=== PATIENT | female | born 1940 | race Caucasian/White ===

== ENCOUNTER 2016-07-17 11:44 | Emergency (ER) | payer MEDICARE ==
[~2016-07-17 11:44] MED LIST: Sodium Chloride 0.9% 1,000 ML BAG ONE
[2016-07-17] MEDS ORDERED: Ondansetron HCl/PF 4 MG/2 ML Vial ONE (12:00)
[2016-07-17] MEDS ORDERED: Metoclopramide HCl 10 MG/2 ML VIAL ONE (12:25)
[2016-07-17] MEDS ORDERED: Ketorolac Tromethamine 30 MG/ML VIAL ONE (12:25)
[2016-07-17 12:40] LABS: Hemoglobin 14.3 g/dL (12.0-16.0); Mean Corpuscular HGB CONC 35.2 g/dL (32.0-36.0); Mean Corpuscular Hemoglobin 32.5 pg (27.0-31.0); Mean Corpuscular Volume 92.4 fl (81.0-99.0); Mean Platelet Volume 6.6 fL (7.4-10.4); Platelet Count 190 thou/uL (130-400); RBC Distribution Width 10.8 % (11.5-14.5); Red Blood Cell (RBC) Count 4.41 mill/uL (4.20-5.40); White Blood Cell (WBC) Count 11.1 thou/uL (4.8-10.8)
[2016-07-17 12:41] LABS: MDiff Complete? YES
[2016-07-17 12:44] LABS: Lymphocytes 47 % (21-51); Neutrophil 46 % (42-75)
[2016-07-17 12:45] LABS: Eosinophils 2 % (0-10); Monocytes 5 % (0-10)
[2016-07-17 12:46] LABS: PLT Morphology Comment Appears Adequate
[2016-07-17 12:50] LABS: ALT (SGPT) 21 U/L (8-55); AST (SGOT) 16 U/L (5-34); Albumin 4.2 g/dL (3.4-4.8); Alkaline Phosphatase 60 U/L (40-150); Anion Gap 18 mmol/L (10-20); BUN (Urea Nitrogen) 15 mg/dL (9.8-20.1); Bilirubin, Total 0.7 mg/dL (0.2-1.2); Calc. Creatinine Clearance 0 mL/min (70-130); Calcium 9.6 mg/dL (7.8-10.44); Carbon Dioxide 20 mmol/L (23-31); Chloride 102 mmol/L (98-107); Estimated GFR-MDRD 72; Globulin 2.9 g/dL (2.4-3.5); Glucose 191 mg/dL (83-110); Lipase 21 U/L (8-78); Potassium 3.8 mmol/L (3.5-5.1); Protein, Total 7.1 g/dL (6.0-8.3); Sodium 136 mmol/L (136-145)
[2016-07-17] MEDS ORDERED: Meclizine HCl 25 MG TAB ONE (13:05)
[2016-07-17 13:10] LABS: Clarity Slightly Cloudy (Clear); Glucose, Urine (Dipstick) 500 mg/dL (Negative); Leukocyte Negative (Negative); Nitrite Negative (Negative); Protein, Urine (Dipstick) 30 mg/dL (Neg-Trace)
[2016-07-17 13:11] LABS: Bacteria/HPF Rare-Few HPF (None Seen); Bilirubin Negative (Negative); Blood, Urine Trace (Negative); RBC/HPF 0-3 HPF (0-3); Squamous Epithelial 0-3 HPF (0-3); Urobilinogen 0.2 mg/dL (0.2-1.0); WBC/HPF 0-3 HPF (0-3)
--- NOTE | 2016-07-17 13:30 | RAD ---
PORTABLE CHEST HISTORY: Vomiting. FINDINGS: The lungs appear clear of infiltrate. Heart size is mildly prominent. Vascular markings are within normal range. IMPRESSION: No evidence of acute process. POS: [id number]
== END 2016-07-17 13:45 | disposition home or self-care (01) ==
LOC: MADERS 11:44
DX: R11.2 Nausea with vomiting, unspecified (principal); R42 Dizziness and giddiness; G62.9 Polyneuropathy, unspecified; E11.9 Type 2 diabetes mellitus without complications; I10 Essential (primary) hypertension; Z79.84 Long term (current) use of oral hypoglycemic drugs; Z79.82 Long term (current) use of aspirin; Z79.899 Other long term (current) drug therapy
CPT/HCPCS: 71010; 80053; 81001; 82150; 83690; 85025; 87086; 96361; 96374; 96375; J1885; J2405; J2765; J7050

== ENCOUNTER 2022-08-07 13:07 | Emergency (ER) | payer MEDICARE | END 2022-08-07 13:25 | disposition home or self-care (01) | LOC: MADERS 13:07 | DX: K04.7 Periapical abscess without sinus (principal); E11.9 Type 2 diabetes mellitus without complications; I10 Essential (primary) hypertension; Z79.84 Long term (current) use of oral hypoglycemic drugs; Z79.899 Other long term (current) drug therapy; Z79.82 Long term (current) use of aspirin | CPT/HCPCS: 99282 ==

== ENCOUNTER 2022-10-04 07:29 | Outpatient (CLI) | payer MEDICARE | END 2022-10-04 07:30 | disposition home or self-care (01) | LOC: MADULT 07:29 | PROVIDERS: ATTEND Internal Medicine | DX: R59.0 Localized enlarged lymph nodes (principal) | CPT/HCPCS: 76999 ==

== ENCOUNTER 2022-10-23 10:02 | Emergency (ER) | payer MEDICARE | END 2022-10-23 11:00 | disposition home or self-care (01) | LOC: MADERS 10:02 | DX: M25.532 Pain in left wrist (principal); E11.9 Type 2 diabetes mellitus without complications; I10 Essential (primary) hypertension; Z79.84 Long term (current) use of oral hypoglycemic drugs; Z79.899 Other long term (current) drug therapy | CPT/HCPCS: 99283 ==